=== PATIENT | female | born 1980 | race Caucasian/White ===

== ENCOUNTER 2016-07-03 15:53 | Emergency (ER) | payer OTHER ==
[2016-07-03 16:09] VITALS: BP 116/76; PULSE 79; RESP 16; TEMP 97.4
--- NOTE | 2016-07-03 17:30 | ED ---
General Adult HPI - General Chief complaint: Extremity Injury, Upper Stated complaint: right hand injury Time Seen by Provider: 07/03/16 17:08 Source: patient, RN notes reviewed Mode of arrival: ambulatory Limitations: no limitations - History of Present Illness Initial comments: This is a 36-year-old female who presents with right upper extremity pain. Patient states she is re-doing her kitchen and a cupboard fell onto her right arm. Patient denies that anything hit her head . Patient denies any loss of consciousness. Patient states it hurts to lift the right upper extremity. Patient states her right wrist is what hurts the most. Patient denies any numbness/weakness or tingling. Patient denies being on any anticoagulants. Patient denies any recent fever, chills, shortness breath, chest pain, abdominal pain, nausea/vomiting/diarrhea, back pain, hematuria, headache, or visual changes, or any other complaints. - Related Data Home Medications Medication Instructions Recorded Confirmed diphenhydrAMINE HCL [Benadryl] 25 mg PO TID PRN 07/03/16 07/03/16 Allergies Allergy/AdvReac Type Severity Reaction Status Date / Time aspirin Allergy Rash/Hives Verified 07/03/16 17:26 menthol [From Icy Hot] Allergy Swelling Verified 07/03/16 17:26 methyl salicylate Allergy Swelling Verified 07/03/16 17:26 [From Icy Hot] NSAIDS (Non-Steroidal Allergy Rash/Hives Verified 07/03/16 17:26 Anti-Inflamma venom-honey bee Allergy Rash/Hives Verified 07/03/16 17:26 [bee venom (honey bee)] wheat Allergy Anaphylaxis Verified 07/03/16 17:26 Review of Systems ROS Statement: Those systems with pertinent positive or pertinent negative responses have been documented in the HPI. ROS Other: All systems not noted in ROS Statement are negative. 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 History of Any Multi-Drug Resistant Organisms: None Reported Past Surgical History: Adenoidectomy, Section, Orthopedic Surgery, Tonsillectomy Additional Past Surgical History / Comment(s): d&C, Past Anesthesia/Blood Transfusion Reactions: No Reported Reaction Past Psychological History: No Psychological Hx Reported Smoking Status: Never smoker Past Alcohol Use History: None Reported Past Drug Use History: None Reported - Past Family History Father Family Medical History: Coronary Artery Disease (CAD) General Exam - General Exam Comments Initial Comments: General: The patient is awake and alert, in no distress, and does not appear acutely ill. Neck: The neck is supple, there is no tenderness or JVD. Cardiovascular: There is a regular rate and rhythm. No murmur, rub or gallop is appreciated. Respiratory: Lungs are clear to auscultation, respirations are non-labored, breath sounds are equal. No wheezes, stridor, rales, or rhonchi. Musculoskeletal: There is tenderness to palpation over the proximal right humerus, there is tenderness to palpation over the radial aspect of the right wrist. There is mild tenderness to palpation over the first MCP joint of the right hand. There is ecchymosis over the right proximal humerus otherwise no swelling or erythema. Patient has full range of motion, strength 5/5 and Sensation intact. Radial pulses are 2+ bilaterally. Neurological: A&O x 3. CN II-XII intact, There are no obvious motor or sensory deficits. Coordination appears grossly intact. Speech is normal. Skin: Faint ecchymosis over the right proximal humerus. Skin is warm and dry and no rashes or lesions are noted. Psychiatric: Normal mood and affect. Limitations: no limitations Course Vital Signs 07/03/16 16:06 Temperature 97.4 F L Pulse Rate 79 Respiratory 16 Rate Blood Pressure 116/76 O2 Sat by Pulse 98 Oximetry Medical Decision Making - Medical Decision Making This is a 36-year-old female presented who presents with upper extremity pain. On physical exam there is tenderness to palpation over the proximal right humerus, there is tenderness to palpation over the radial aspect of the right wrist. There is mild tenderness to palpation over the first MCP joint of the right hand. There is ecchymosis over the right proximal humerus otherwise no swelling or erythema. Patient has full range of motion, strength 5/5 and Sensation intact. Radial pulses are 2+ bilaterally. X-rays of the right humerus , right wrist and right hand were done and reviewed showing: X-ray wrist right: Normal right wrist. X-ray right humerus: Normal right humerus. X-ray right hand: Normal right hand. Reported by Dr. Garcia. I discussed the results with patient. Discussed rest, ice, elevate and use Brendon wrap for compression and Tylenol for pain. I discussed occult fracture. I discussed return parameters. Discussed that patient should follow up with PCP in one to 2 days or return to the [facility] for any worsening symptoms or for any further concerns. Patient was receptive to this plan and patient will be discharged home. I discussed this case with attending physician Dr. Vazquez who agrees the plan as stated above. Disposition Clinical Impression: Wrist contusion, Contusion of right upper extremity Disposition: HOME SELF-CARE Condition: Good Instructions: Wrist Injury (ED) Additional Instructions: Please rest, ice, elevate and use Brendon wrap for compression. Please use Tylenol for any pain. If symptoms do not improve in the next 7 days repeat x-rays may be needed to rule out occult fracture. Please follow-up with family doctor in the next 2 days of symptoms have not improved. Please return to emergency room if the symptoms increase or worsen or for any other concerns. Referrals: Marc Muro MD [Primary Care Provider] - 1-2 days Time of Disposition: 18:09
--- NOTE | 2016-07-03 18:03 | XR ---
EXAMINATION TYPE: XR wrist complete RT DATE OF EXAM ORDERED: 07/03/2016 5:32 PM HISTORY: Pain. COMPARISON: None. FINDINGS: No fracture, dislocation or other osseous lesion is seen. IMPRESSION: NORMAL RIGHT WRIST.
--- NOTE | 2016-07-03 18:03 | XR ---
EXAMINATION TYPE: XR hand complete RT DATE OF EXAM ORDERED: 07/03/2016 5:32 PM HISTORY: Pain. COMPARISON: None. FINDINGS: No fracture, dislocation or other acute osseous lesion is seen. IMPRESSION: NORMAL RIGHT HAND.
--- NOTE | 2016-07-03 18:04 | XR ---
EXAMINATION TYPE: XR humerus RT DATE OF EXAM ORDERED: 07/03/2016 5:32 PM HISTORY: Pain. COMPARISON: None. FINDINGS: No long bone fracture is seen. No elbow joint effusion is seen. IMPRESSION: NORMAL RIGHT HUMERUS.
== END 2016-07-03 18:17 | disposition home or self-care (01) ==
LOC: EC 15:53
DX: S40.021A Contusion of right upper arm, initial encounter (principal); S60.211A Contusion of right wrist, initial encounter; W20.8XXA Other cause of strike by thrown, projected or falling object, initial encounter; Y92.000 Kitchen of unspecified non-institutional (private) residence as the place of occurrence of the external cause; Z88.6 Allergy status to analgesic agent; Z88.8 Allergy status to other drugs, medicaments and biological substances; Z91.030 Bee allergy status; Z91.018 Allergy to other foods
CPT/HCPCS: 99283

== ENCOUNTER → 2019-07-18 | Outpatient (CLI) | payer OTHER ==
--- NOTE | 2019-07-18 10:41 | US ---
EXAMINATION TYPE: US abdomen complete DATE OF EXAM: 07/18/2019 COMPARISON: NONE CLINICAL HISTORY: R10.12 left upper quadrant pain. EXAM MEASUREMENTS: Liver Length: 15.0 cm Gallbladder Wall: 0.1 cm CBD: 0.5 cm Spleen: 11.2 cm Right Kidney: 10.0 x 5.1 x 4.8 cm Left Kidney: 10.2 x 4.8 x 5.0 cm Pancreas: Tail obscured by overlying bowel gas, visualized portions wnl Liver: Coarse, echogenic texture Gallbladder: wnl Evidence for sonographic Ge's sign: No CBD: wnl Spleen: wnl Right Kidney: No hydronephrosis or masses seen Left Kidney: No hydronephrosis or masses seen Upper IVC: wnl Abd Aorta: wnl The liver is heterogeneous. IMPRESSION: 1. Mild liver heterogeneity may be related to some fatty infiltration. 2. Abdomen ultrasound otherwise unremarkable.
== END | disposition home or self-care (01) ==
LOC: RADUSWWP 10:01
PROVIDERS: ATTEND Family Medicine
DX: R10.12 Left upper quadrant pain (principal); Z88.6 Allergy status to analgesic agent; Z88.5 Allergy status to narcotic agent
CPT/HCPCS: 76700

== ENCOUNTER → 2019-08-03 | Outpatient (CLI) | payer OTHER ==
--- NOTE | 2019-08-03 09:22 | NM ---
EXAMINATION TYPE: NM hepatobiliary w CCK DATE OF EXAM: 08/03/2019 COMPARISON: Abdominal ultrasound dated 07/18/2019 HISTORY: Abdominal pain, chronic cholecystitis TECHNIQUE: After the intravenous administration of 5.2 mCi Tc 99m Mebrofenin hepatobiliary scintigrap hy is performed. Immediate images post injection. FINDINGS: There is satisfactory initial accumulation of tracer by the liver. The gallbladder is visualized wit hin 8 minutes. At one hour CCK was administered, patient was injected with 1.5 mcg of Kinevac, and g allbladder ejection fraction is calculated at 98 %, elevated. Therefore there is no scintigraphic ev idence of cystic or common bile duct obstruction to suggest acute cholecystitis or gallbladder dyskin esia. IMPRESSION: Hyperkinetic gallbladder with elevated ejection fraction of 98%. No scintigraphic evidenc e of acute or chronic cholecystitis.
== END | disposition home or self-care (01) ==
LOC: RADNMMAIN 06:51
PROVIDERS: ATTEND Surgery
DX: K82.8 Other specified diseases of gallbladder (principal); K81.1 Chronic cholecystitis
CPT/HCPCS: 78227; A9537; J2805

== ENCOUNTER → 2019-08-04 | Outpatient (CLI) | payer OTHER | END | disposition home or self-care (01) | LOC: LABWHC1 09:20 | PROVIDERS: ATTEND Surgery | DX: U07.1 COVID-19 (principal) | CPT/HCPCS: 87635 ==

== ENCOUNTER 2019-08-06 09:16 | Day surgery (SDC) | payer OTHER ==
[2019-08-03 11:39] VITALS: BMI 27.9
[~2019-08-06 09:16] MED LIST: LACTATED RINGERS 1,000 ML IV SCH; LIDOCAINE 1% (10MG/ML) FOR IV START INTRADERMA PRN
[2019-08-06 10:25] VITALS: TEMP 97.9
[2019-08-06 10:26] LABS: Glucose,Whole Blood 101 mg/dL (75-99)
[2019-08-06] MEDS ORDERED: PROPOFOL 10 MG/ML 20 ML VIAL IV ONE (11:02)
--- NOTE | 2019-08-06 11:08 | P.GSHP ---
History of Present Illness H&P Date: 08/06/19 Chief Complaint: GERD, epigastric pain This is a 31-year-old female presents today for EGD. She has had complaints of GERD and epigastric pain. 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 HAS BEEN HAVING UPPER ABD. PAIN FOR PAST 3 WEEKS History of Any Multi-Drug Resistant Organisms: None Reported Past Surgical History: Adenoidectomy, Section, Orthopedic Surgery, Tonsillectomy Additional Past Surgical History / Comment(s): d&C,. BONE CHIP REMOVED FROM LT ARM Past Anesthesia/Blood Transfusion Reactions: No Reported Reaction Smoking Status: Never smoker - Past Family History Father Family Medical History: Coronary Artery Disease (CAD) Medications and Allergies Home Medications Medication Instructions Recorded Confirmed Type Albuterol Sulfate [Proair Hfa] 8.5 gm INHALATION PRN 08/06/19 History Allergies Allergy/AdvReac Type Severity Reaction Status Date / Time aspirin Allergy Rash/Hives Verified 08/06/19 10:10 menthol [From Icy Hot] Allergy Swelling Verified 08/06/19 10:10 methyl salicylate Allergy Swelling Verified 08/06/19 10:10 [From Icy Hot] NSAIDS (Non-Steroidal Allergy Rash/Hives Verified 08/06/19 10:10 Anti-Inflamma venom-honey bee Allergy Rash/Hives Verified 08/06/19 10:10 [bee venom (honey bee)] wheat Allergy Anaphylaxis Verified 08/06/19 10:10 Surgical - Exam Vital Signs Temp Pulse Resp BP Pulse Ox 97.9 F 77 17 127/81 98 08/06/19 10:18 08/06/19 10:18 08/06/19 10:18 08/06/19 10:18 08/06/19 10:18 - General well developed, well nourished, no distress - Eyes PERRL - ENT normal pinna - Neck no masses - Respiratory normal expansion - Cardiovascular Rhythm: regular - Abdomen Abdomen: soft, non tender Results - Labs Abnormal Lab Results - Last 24 Hours (Table) 08/06/19 Range/Units 10:22 POC Glucose (mg/dL) 101 H (75-99) mg/dL Assessment and Plan Assessment: GERD, epigastric pain. We'll perform EGD.
--- NOTE | 2019-08-06 11:23 | P.OP ---
Date of Procedure: 08/06/19 Preoperative Diagnosis: GERD Postoperative Diagnosis: Antral gastritis Mild esophagitis Procedure(s) Performed: EGD Anesthesia: MAC Surgeon: Kurtis Caldwell Pathology: other (Antrum, esophagus) Condition: stable Disposition: PACU Description of Procedure: The patient's placed on the endoscopy table in the lateral position. She received IV sedation. The gastroscope placed oropharynx passed in the esophagus and stomach. Scope was then placed through the pylorus. The first and second portion of the duodenum appeared normal. Scope was then brought back the antrum this. Mildly inflamed. A biopsies performed. The scope was then retroflexed and the remainder of the stomach appeared normal. The GE junction was at 40 cm. The distal esophagus. Inflamed in this area is biopsied. The proximal esophagus. Normal. There was no significant hiatal hernia. Scope was withdrawn for patient.
[2019-08-06 11:47] VITALS: BP 113/78; PULSE 68; RESP 16
== END 2019-08-06 12:14 | disposition home or self-care (01) ==
LOC: ORWHC2ENDO 09:16
PROVIDERS: ATTEND Surgery
DX: K29.50 Unspecified chronic gastritis without bleeding (principal); K21.0 Gastro-esophageal reflux disease with esophagitis; J45.909 Unspecified asthma, uncomplicated; Z88.6 Allergy status to analgesic agent; Z90.89 Acquired absence of other organs; Z98.891 History of uterine scar from previous surgery; Z91.048 Other nonmedicinal substance allergy status; Z91.018 Allergy to other foods; Z91.030 Bee allergy status; Z82.49 Family history of ischemic heart disease and other diseases of the circulatory system
CPT/HCPCS: 81025; 88305; 43239; J2704

== ENCOUNTER → 2019-08-21 | Outpatient (CLI) | payer OTHER | END | disposition home or self-care (01) | LOC: LABWHC1 08:55 | PROVIDERS: ATTEND Surgery | DX: Z11.59 Encounter for screening for other viral diseases (principal) | CPT/HCPCS: 87635 ==

== ENCOUNTER → 2019-08-23 | Day surgery (SDC) | payer OTHER ==
[2019-08-21 15:14] VITALS: BMI 27.8
[~2019-08-23] MED LIST changes: +ACETAMINOPHEN TAB 500 MG TAB PO ONE; +BUPIVACAIN-EPI 0.25%-1:200,000 30 ML VIAL SQ ONE; +DEXAMETHASONE SOD PHOSPHATE 10 MG/ML 1 ML VIAL IV ONE; +GLYCOPYRROLATE 0.2 MG/ML 2 ML VIAL ONE; +HEPARIN SODIUM,PORCINE 5,000 UNIT/ML 1 ML VIAL SQ ONE; +HYDROmorphone (PF) 1 MG/ML ONE; +HYDROmorphone 0.5 MG/0.5 ML SYRINGE IVP PRN; -LACTATED RINGERS 1,000 ML IV SCH; -LIDOCAINE 1% (10MG/ML) FOR IV START INTRADERMA PRN; +LIDOCAINE 1% INJ 10MG/ML (20 ML MDV) ONE; +METOCLOPRAMIDE 5 MG/ML 2 ML VIAL IVP ONE; +MIDAZOLAM 2 MG/2 ML VIAL ONE; +NEOSTIGMINE 1 MG/ML 10 ML VIAL ONE; +ONDANSETRON 4 MG/2 ML VIAL IVP ONE; +PROPOFOL 10 MG/ML 20 ML VIAL IV ONE; +ROCURONIUM BROMIDE 10 MG/ML 5 ML VIAL IV ONE; +SUCCINYLCHOLINE CHLORIDE 100 MG/5 ML SYR IV ONE; +fentaNYL (PF) 50 MCG/ML 2 ML AMP ONE
[2019-08-23 06:52] VITALS: TEMP 97
[2019-08-23 07:09] LABS: Glucose,Whole Blood 98 mg/dL (75-99)
[2019-08-23] MEDS: LACTATED RINGERS 1,000 ML IV SCH ×2 (07:09→12:48)
--- NOTE | 2019-08-23 08:30 | P.OP ---
Date of Procedure: 08/23/19 Preoperative Diagnosis: Cholecystitis Postoperative Diagnosis: Cholecystitis Procedure(s) Performed: Laparoscopic cholecystectomy Anesthesia: TOMER Surgeon: Kurtis Caldwell Estimated Blood Loss (ml): 5 Pathology: other (Gallbladder) Condition: stable Disposition: PACU Description of Procedure: The patient was placed on the operating table. The patient received a general endotracheal tube anesthesia. The patients abdomen was prepped and draped in the usual sterile fashion. Through an infraumbilical stab incision, the fascia of the anterior abdominal wall was grasped with a pair of Kochers and then the Veress needle was placed in the peritoneal cavity. Position of the Veress needle was confirmed with positive drop test. The abdomen was then insufflated. After adequate insufflation, the 10 mm trocar was placed in the peritoneal cavity. Following this the laparoscope was placed in the peritoneal cavity. The patient was placed in the head-up, right side up position and then a 5 mm trocar was placed in the right lateral and right subcostal position under direct visualization. A 8 mm trocar was placed in the epigastric position. The gallbladder was grasped in the fundus and infundibulum. Traction on the gallbladder was placed in the lateral and the cephalad positions. The triangle of Calot was visualized.. The cystic duct was bluntly dissected until the union of the cystic duct and common bile duct was seen. A critical view of safety was achieved. The cystic duct was then divided and sealed with the Harmonic scissors. A PDS Endoloop was then placed throughout the cystic duct stump. The cystic artery divided and sealed with the Harmonic scissors. The gallbladder was then removed from the liver bed using Harmonic scissors. The gallbladder was then extracted through the epigastric port site. Operative field was checked for any bleeding spots and Harmonic scissors was used to coagulate the liver bed. The abdomen was irrigated. The trocars were removed. The skin was closed using interrupted 3-0 Vicryl suture. Dermabond dressing were applied. The patient tolerated the procedure well.
--- NOTE | 2019-08-23 08:31 | P.GSHP ---
History of Present Illness H&P Date: 08/23/19 Chief Complaint: Right upper quadrant pain This a 31-year-old female presents today for laparoscopic cholecystectomy. Patient is right upper quadrant pain. Her recent HIDA scan shows abnormal ejection fraction. 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, "beginning retinal detachment" History of Any Multi-Drug Resistant Organisms: None Reported Past Surgical History: Adenoidectomy, Section, Orthopedic Surgery, Tonsillectomy Additional Past Surgical History / Comment(s): d&C, EGD Past Anesthesia/Blood Transfusion Reactions: No Reported Reaction Smoking Status: Never smoker - Past Family History Father Family Medical History: Coronary Artery Disease (CAD) Medications and Allergies Home Medications Medication Instructions Recorded Confirmed Type Albuterol Sulfate [Proair Hfa] 8.5 gm INHALATION DIRECTED PRN 08/06/19 08/23/19 History Allergies Allergy/AdvReac Type Severity Reaction Status Date / Time aspirin Allergy Rash/Hives Verified 08/23/19 07:11 menthol [From Icy Hot] Allergy Swelling Verified 08/23/19 07:11 methyl salicylate Allergy Swelling Verified 08/23/19 07:11 [From Icy Hot] NSAIDS (Non-Steroidal Allergy Rash/Hives Verified 08/23/19 07:11 Anti-Inflamma venom-honey bee Allergy Anaphylaxis Verified 08/23/19 07:11 [bee venom (honey bee)] wheat Allergy Anaphylaxis Verified 08/23/19 07:11 Surgical - Exam Vital Signs Temp Pulse Resp BP Pulse Ox 97 F L 85 15 127/90 98 08/23/19 06:50 08/23/19 06:50 08/23/19 06:50 08/23/19 06:50 08/23/19 06:50 - General well developed, well nourished, no distress - Eyes PERRL - ENT normal pinna - Neck no masses - Respiratory normal expansion - Cardiovascular Rhythm: regular - Abdomen Abdomen: soft, non tender Assessment and Plan Assessment: Chronic cholecystitis. We'll perform laparoscopic cholecystectomy.
[2019-08-23 08:58] VITALS: RESP 16
[2019-08-23 12:16] VITALS: BP 105/75; PULSE 68
== END ==
LOC: OR 06:21
PROVIDERS: ATTEND Surgery
DX: K81.2 Acute cholecystitis with chronic cholecystitis (principal); J45.909 Unspecified asthma, uncomplicated; E16.2 Hypoglycemia, unspecified; Z88.6 Allergy status to analgesic agent; Z91.030 Bee allergy status; Z91.018 Allergy to other foods; Z90.89 Acquired absence of other organs; Z98.891 History of uterine scar from previous surgery; Z82.49 Family history of ischemic heart disease and other diseases of the circulatory system; Z98.890 Other specified postprocedural states
CPT/HCPCS: 81025; 88304; 47562; J2250; J1644; J1100; J2710; J2765; J0690; J2405; J2001; J3010; J1170 ×2; J0330; J2704

== ENCOUNTER → 2020-03-14 | Outpatient (CLI) | payer OTHER | END | disposition home or self-care (01) | LOC: LABWHC1 14:41 | PROVIDERS: ATTEND Family Medicine | DX: R05 Cough (principal); Z20.828 Contact with and (suspected) exposure to other viral communicable diseases | CPT/HCPCS: U0003; C9803 ==

== ENCOUNTER → 2021-05-05 | Outpatient (CLI) | payer OTHER ==
--- NOTE | 2021-05-06 10:00 | MM ---
Reason for exam: screening (asymptomatic). Baseline mammogram. History: Took hormonal contraceptives beginning at age 17. Physical Findings: Nurse did not find any significant physical abnormalities on exam. MG 3D Screening Mammo W/Cad Bilateral CC and MLO view(s) were taken. The breast tissue is heterogeneously dense. This may lower the sensitivity of mammography. Focal asymmetry upper outer right breast zone B. ASSESSMENT: Incomplete: need additional imaging evaluation, BI-RAD 0 RECOMMENDATION: Special view mammogram of the right breast. If lesion persists on supplemental views, image directed ultrasound is recommended. [facility] will attempt to contact patient to return for supplemental views and ultrasound if indicated.
== END | disposition home or self-care (01) ==
LOC: RADMAMWWP 09:39
PROVIDERS: ATTEND Obstetrics & Gynecology
DX: Z12.31 Encounter for screening mammogram for malignant neoplasm of breast (principal)
CPT/HCPCS: 77063; 77067

== ENCOUNTER → 2021-05-07 | Outpatient (CLI) | payer OTHER ==
--- NOTE | 2021-05-07 11:46 | MM ---
Reason for exam: additional evaluation requested from abnormal screening. Last mammogram was performed less than 1 month ago. History: Took hormonal contraceptives beginning at age 17. Physical Findings: Breast exam preformed at baseline screening. MG 3D Work Up W/Cad RT Spot compression CC and spot compression LM view(s) were taken of the right breast. Prior study comparison: May 05, 2021, bilateral MG 3d screening mammo w/cad. There are scattered fibroglandular densities. 10 o'clock focal asymmetry becomes less defined on spot images, likely a global asymmetry. Ultrasound recommended. These results were verbally communicated with the patient and result sheet given to the patient on 05/07/21. ASSESSMENT: Incomplete: need additional imaging evaluation, BI-RAD 0 RECOMMENDATION: Ultrasound of the right breast.
--- NOTE | 2021-05-07 11:47 | USB ---
Reason for exam: additional evaluation requested from abnormal screening. History: Took hormonal contraceptives beginning at age 17. US Breast Workup Limited RT Technologist: Drea Hamilton Right limited breast ultrasound including focal area of concern, retroareolar and axilla demonstrates no cystic or solid lesion seen. Scanned 9-12 o'clock. These results were verbally communicated with the patient and result sheet given to the patient on 05/07/21. ASSESSMENT: Probably benign, BI-RAD 3 RECOMMENDATION: Follow-up diagnostic mammogram of the right breast in 6 months.
== END | disposition home or self-care (01) ==
LOC: RADMAMWWP 10:32
PROVIDERS: ATTEND Obstetrics & Gynecology
DX: R92.8 Other abnormal and inconclusive findings on diagnostic imaging of breast (principal)
CPT/HCPCS: 77061; 77065

== ENCOUNTER → 2021-11-17 | Outpatient (CLI) | payer OTHER ==
--- NOTE | 2021-11-17 10:47 | MM ---
Reason for Exam: Follow-up at short interval from prior study. Last screening mammogram was performed 6 month(s) ago. Patient History: Menarche at age 14. First Full-Term at age 22. Patient has history of breast feeding. Hormonal Contraceptives, from age 17 until age 28. Last menstrual period: 11/02/2021 Risk Values: Feli 5 year model risk: 0.5%. NCI Lifetime model risk: 9.0%. Prior Study Comparison: 05/05/2021 Bilateral Screening Mammogram, [facility]. 05/07/2021 Right Diagnostic Mammogram, [facility]. Tissue Density: Right: The breast tissue is heterogeneously dense. This may lower the sensitivity of mammography. Findings: Analyzed By CAD. Asymmetric density upper outer right breast is again noted however is less conspicuous on today's study. Continued follow-up is advised. No evidence for suspicious cluster of calcifications. Overall Assessment: Benign, BI-RAD 2 Management: Screening Mammogram of both breasts in 6 months. A clinical breast exam by your physician is recommended on an annual basis and results should be correlated with mammographic findings. This exam should not preclude additional follow-up of suspicious palpable abnormalities. Results were given to the patient verbally at the time of exam. Electronically signed and approved by: Golden Davis M.D. Radiologis
== END | disposition home or self-care (01) ==
LOC: RADMAMWWP 07:39
PROVIDERS: ATTEND Obstetrics & Gynecology
DX: R92.8 Other abnormal and inconclusive findings on diagnostic imaging of breast (principal)
CPT/HCPCS: 77061; 77065

== ENCOUNTER → 2022-09-06 | Outpatient (CLI) | payer OTHER ==
[2022-09-06 16:08] LABS: Basophils # (A) 0.06 X 10*3/uL; Eosinophils # (A) 0.51 X 10*3/uL; Eosinophils % (A) 8.6 %; HCT 41.8 %; HGB 13.4 d/dL; Lymphocytes # (A) 1.82 X 10*3/uL; Lymphocytes % (A) 30.6 %; MCH 29.8 pg; MCHC 32.1 d/dL; MCV 93.1 FL; Mean Platelet Volume 11.7 FL; Monocytes # (A) 0.44 X 10*3/uL; Monocytes % (A) 7.4 %; NRBC Per 100 WBC 0 X 10*3/uL; Neutrophils # (A) 3.11 X 10*3/uL; Neutrophils % (A) 52.2 %; Platelet Count 261 X 10*3/uL; RBC 4.49 X 10*6/uL; RDW 13.2 %; WBC 5.95 X 10*3/uL
[2022-09-06 16:10] LABS: Chol/HDL Ratio 1.77 Ratio; LDL Cholesterol,Calculated 46.2 mg/dL; Rheumatoid Factor, Qnt <15 IU/mL; T4, Free (Free Thyroxine) 1.32 ng/dL; VLDL Calculation 5.28 mg/dL
[2022-09-07 08:37] LABS: ALT 22 U/L; AST 17 U/L; Albumin 4.5 d/dL; Albumin/Globulin Ratio 2.05 Ratio; Alkaline Phosphatase 51 U/L; BUN/Creat Ratio 9.56 Ratio; Blood Urea Nitrogen 8.6 mg/dL; Calcium 9.2 mg/dL; Carbon Dioxide 24.1 mmol/L; Chloride 103 mmol/L; Globulin 2.2 d/dL; Glucose 97 mg/dL; Potassium 4.6 mmol/L; Sodium 140 mmol/L; Total Bilirubin 0.8 mg/dL; Total Protein 6.7 d/dL
== END | disposition home or self-care (01) ==
LOC: LABWHC1 07:43
PROVIDERS: ATTEND Nurse Practitioner Family
DX: J45.20 Mild intermittent asthma, uncomplicated (principal); M25.50 Pain in unspecified joint; E66.9 Obesity, unspecified; M19.90 Unspecified osteoarthritis, unspecified site; Z68.30 Body mass index [BMI] 30.0-30.9, adult; Z00.00 Encounter for general adult medical examination without abnormal findings
CPT/HCPCS: 36415; 80053; 80061; 82306; 84439; 84443; 85025; 86038; 86431

== ENCOUNTER → 2023-09-28 | Outpatient (CLI) | payer OTHER ==
[2023-09-28 09:13] LABS: Basophils # (A) 0.1 k/uL (0-0.2); Basophils % (A) 1 %; Eosinophils # (A) 0.4 k/uL (0-0.7); Eosinophils % (A) 6 %; HCT 44.6 % (34.0-46.0); HGB 14.1 gm/dL (11.4-16.0); Lymphocytes # (A) 1.7 k/uL (1.0-4.8); Lymphocytes % (A) 29 %; MCH 29.3 pg (25.0-35.0); MCHC 31.7 g/dL (31.0-37.0); MCV 92.3 fL (80.0-100.0); Mean Platelet Volume 8.5; Monocytes # (A) 0.3 k/uL (0-1.0); Monocytes % (A) 5 %; Neutrophils # (A) 3.4 k/uL (1.3-7.7); Neutrophils % (A) 57 %; Platelet Count 269 k/uL (150-450); RBC 4.83 m/uL (3.80-5.40); RDW 13.1 % (11.5-15.5); WBC 5.9 k/uL (3.8-10.6)
[2023-09-28 16:21] LABS: BUN/Creat Ratio 13.22 Ratio (12.00-20.00); Blood Urea Nitrogen 11.9 mg/dL (9.0-27.0); Carbon Dioxide 22.5 mmol/L (21.6-31.8); Chloride 105 mmol/L (96-109); Chol/HDL Ratio 1.79 Ratio; Glucose 110 mg/dL (70-110); LDL Cholesterol,Calculated 50.9 mg/dL (0.0-131.0); Potassium 4.6 mmol/L (3.5-5.5); Rheumatoid Factor, Qnt <15 IU/mL (0-15); Sodium 140 mmol/L (135-145); VLDL Calculation 7.26 mg/dL (5.00-40.00)
[2023-09-28 16:22] LABS: ALT 15 U/L (8-44); AST 18 U/L (13-35); Albumin 4.7 g/dL (3.8-4.9); Albumin/Globulin Ratio 1.96 Ratio (1.60-3.17); Alkaline Phosphatase 64 U/L (41-126); Calcium 9.8 mg/dL (8.7-10.3); Globulin 2.4 g/dL (1.6-3.3); T4, Free (Free Thyroxine) 1.22 ng/dL (0.80-1.80); Total Bilirubin 0.9 mg/dL (0.3-1.2); Total Protein 7.1 g/dL (6.2-8.2)
== END | disposition home or self-care (01) ==
LOC: LABWHC1 08:56
PROVIDERS: ATTEND Family Medicine
DX: M19.90 Unspecified osteoarthritis, unspecified site (principal); E55.9 Vitamin D deficiency, unspecified; Z00.00 Encounter for general adult medical examination without abnormal findings
CPT/HCPCS: 36415; 80053; 80061; 82306; 84439; 84443; 85025; 86431

== ENCOUNTER → 2023-11-01 | Outpatient (CLI) | payer OTHER ==
--- NOTE | 2023-11-03 12:09 | MM ---
Reason for Exam: Screening (asymptomatic). Last mammogram was performed 1 year(s) and 5 month(s) ago. Patient History: Menarche at age 14. First Full-Term at age 22. Patient has history of breast feeding. Hormonal Contraceptives, from age 17 until age 28. Risk Values: Feli 5 year model risk: 0.6%. NCI Lifetime model risk: 8.9%. Prior Study Comparison: 05/07/2021 Right Diagnostic Mammogram, [facility]. 11/17/2021 Right MG 3D diag mammo w/cad RT, [facility]. 05/27/2022 Bilateral MG 3D screening mammo w/cad, [facility]. Tissue Density: The breasts are heterogeneously dense, which may obscure small masses. Findings: Analyzed By CAD. There is no suspicious group of microcalcifications or new suspicious mass in either breast. Overall Assessment: Benign, BI-RAD 2 Management: Screening Mammogram of both breasts in 1 year. . Patient should continue monthly self-breast exams. A clinical breast exam by your physician is recommended on an annual basis. This exam should not preclude additional follow-up of suspicious palpable abnormalities. Note on Feli scores and lifetime risk: 1. A Feli score greater than 3% is considered moderate risk. If this is the case, consider specialist referral to assess eligibility for a risk reducing agent. 2. If overall lifetime risk for the development of breast cancer is 20% or higher, the patient may qualify for future screening with alternating mammogram and breast MRI. Electronically signed and approved by: Golden Davis M.D. Radiologis
== END | disposition home or self-care (01) ==
LOC: RADMAMWWP 16:21
PROVIDERS: ATTEND Family Medicine
DX: Z12.31 Encounter for screening mammogram for malignant neoplasm of breast (principal)
CPT/HCPCS: 77063; 77067

== ENCOUNTER 2023-12-07 15:53 | Emergency (ER) | payer OTHER ==
[2023-12-07 15:57] VITALS: RESP 18; TEMP 98
--- NOTE | 2023-12-07 16:10 | ED ---
Chest Pain HPI - General Chief Complaint: Chest Pain Stated Complaint: Chest Tightness Time Seen by Provider: 12/07/23 16:08 Source: patient, RN notes reviewed Mode of arrival: ambulatory Limitations: no limitations - History of Present Illness Initial Comments: 43-year-old female with past medical history of asthma presents emergency department chief complaint of intermittent chest tightness and heart palpitations over the past 6 days. she does have a history of similar symptoms however these symptoms have persisted over the past few days. today she began to feel mildly short of breath as well. She denies recent prolonged travel, recent surgeries, blood clotting disorders, history of DVT or PE. No blood thinner use. She denies fevers, chills, nausea, vomiting, abdominal pain, cough, congestion, rhinorrhea. She denies history of hypertension, diabetes, [place], CVA. 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 - Related Data Home Medications Medication Instructions Recorded Confirmed No Known Home Medications 12/07/23 12/07/23 Allergies Allergy/AdvReac Type Severity Reaction Status Date / Time aspirin Allergy Rash/Hives Verified 12/07/23 16:58 menthol [From Icy Hot] Allergy Swelling Verified 12/07/23 16:58 methyl salicylate Allergy Swelling Verified 12/07/23 16:58 [From Icy Hot] NSAIDS (Non-Steroidal Allergy Rash/Hives Verified 12/07/23 16:58 Anti-Inflamma venom-honey bee Allergy Anaphylaxis Verified 12/07/23 16:58 [bee venom (honey bee)] wheat Allergy Anaphylaxis Verified 12/07/23 16:58 Review of Systems ROS Statement: Those systems with pertinent positive or pertinent negative responses have been documented in the HPI. ROS Other: All systems not noted in ROS Statement are negative. 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 History of Any Multi-Drug Resistant Organisms: None Reported Past Surgical History: Adenoidectomy, Section, Orthopedic Surgery, Tonsillectomy Additional Past Surgical History / Comment(s): d&C, bone graft 10/2023 Past Anesthesia/Blood Transfusion Reactions: No Reported Reaction Past Psychological History: No Psychological Hx Reported Smoking Status: Former smoker Past Alcohol Use History: Occasional Past Drug Use History: None Reported - Past Family History Father Family Medical History: Coronary Artery Disease (CAD) General Exam Limitations: no limitations General appearance: alert, in no apparent distress Head exam: Present: atraumatic, normocephalic, normal inspection Eye exam: Present: normal appearance, PERRL, EOMI. Absent: scleral icterus, conjunctival injection, periorbital swelling ENT exam: Present: normal exam, mucous membranes moist Neck exam: Present: normal inspection. Absent: tenderness, meningismus, lymphadenopathy Respiratory exam: Present: normal lung sounds bilaterally. Absent: respiratory distress, wheezes, rales, rhonchi, stridor Cardiovascular Exam: Present: regular rate, normal rhythm, normal heart sounds. Absent: systolic murmur, diastolic murmur, rubs, gallop, clicks GI/Abdominal exam: Present: soft, normal bowel sounds. Absent: distended, tenderness, guarding, rebound, rigid Extremities exam: Present: normal inspection, full ROM, normal capillary refill. Absent: tenderness, pedal edema, joint swelling, calf tenderness Back exam: Present: normal inspection Neurological exam: Present: alert, oriented X3, CN II-XII intact Skin exam: Present: warm, dry, intact, normal color. Absent: rash Course Vital Signs 12/07/23 12/07/23 12/07/23 15:55 16:30 17:00 Temperature 98 F Pulse Rate 83 79 Respiratory 18 18 18 Rate Blood Pressure 147/91 140/94 126/86 O2 Sat by Pulse 100 98 Oximetry 12/07/23 17:30 Temperature Pulse Rate 75 Respiratory 18 Rate Blood Pressure 119/84 O2 Sat by Pulse 98 Oximetry Chest Pain MDM - MDM Was pt. sent in by a medical professional or institution (, PA, MULTIPLE TUBE WINDING MACHINE OPERATOR, urgent care, hospital, or retirement...) When possible be specific @ -No Did you speak to anyone other than the patient for history (EMS, parent, family, police, friend...)? What history was obtained from this source @ -No Did you review nursing and triage notes (agree or disagree)? Why? @ -I reviewed and agree with nursing and triage notes Were old charts reviewed (outside hosp., previous admission, EMS record, old EKG, old radiological studies, urgent care reports/EKG's, retirement records)? Report findings @ -No old charts were reviewed Differential Diagnosis (chest pain, altered mental status, abdominal pain women, abdominal pain men, vaginal bleeding, weakness, fever, dyspnea, syncope, headache, dizziness, GI bleed, back pain, seizure, CVA, palpatations, mental health, musculoskeletal)? @ -Differential Chest Pain: Stable Angina, Unstable Angina, STEMI, NSTEMI Aortic Dissection, Pneumothorax, Musculoskeletal, Esophageal Spasm GERD, Cholecystitis, Pancreatitis, Zoster, this is not meant to be an all-inclusive list. EKG interpreted by me (3pts min.). @ -Completed at 1614, sinus rhythm with a ventricular rate of 89, WA interval 135, QTc 388. No acute signs of ischemia X-rays interpreted by me (1pt min.). @ -Chest x-ray no acute cardiopulmonary process or disease CT interpreted by me (1pt min.). @ -None done U/S interpreted by me (1pt. min.). @ -None done What testing was considered but not performed or refused? (CT, X-rays, U/S, labs)? Why? @ -None What meds were considered but not given or refused? Why? @ -None Did you discuss the management of the patient with other professionals ( professionals i.e. , PA, MULTIPLE TUBE WINDING MACHINE OPERATOR, lab, RT, psych nurse, forensic social worker, third mate, teacher, transit police officer, machine adjuster leader case trim)? Give summary @ -No Was smoking cessation discussed for >3mins.? @ -No Was critical care preformed (if so, how long)? @ -No Were there social determinants of health that impacted care today? How? (Homelessness, low income, unemployed, alcoholism, drug addiction, transportation, low edu. Level, literacy, decrease access to med. care, [facility]ci, rehab)? @ -No Was there de-escalation of care discussed even if they declined (Discuss DNR or withdrawal of care, Hospice)? DNR status @ -No What co-morbidities impacted this encounter? (DM, HTN, Smoking, COPD, CAD, Cancer, CVA, ARF, Chemo, Hep., AIDS, mental health diagnosis, sleep apnea, morbid obesity)? @ -None Was patient admitted / discharged? Hospital course, mention meds given and route, prescriptions, significant lab abnormalities, going to OR and other pertinent info. @ -43-year-old female with intermittent heart palpitations and chest tightness. On examination patient is resting comfortably on room air no signs of acute distress, vitals are within normal limits. There are no acute findings on physical examination. Patient will undergo cardiac workup to rule out pulmonary or cardiac pathology, patient is in agreement with this plan. additionally, EKG reveals sinus rhythm with no acute ischemic changes. CBC, CMP unremarkable, coagulation profile including D-dimer within normal limits. Lipase nonelevated, nonelevated. Recommend that patient follow-up outpatient with her primary care provider for further evaluation of potential Holter monitor placement. All questions answered at bedside strict return parameters as the patient she is verbalized understanding. Case discussed with Dr. Alvarenga Undiagnosed new problem with uncertain prognosis? @ -No Drug Therapy requiring intensive monitoring for toxicity (Heparin, Nitro, Insulin, Cardizem)? @ -No Were any procedures done? @ -No Diagnosis/symptom? @ -Palpitations Acute, or Chronic, or Acute on Chronic? @ -Acute Uncomplicated (without systemic symptoms) or Complicated (systemic symptoms)? @ -Uncomplicated Side effects of treatment? @ -No Exacerbation, Progression, or Severe Exacerbation? @ -No Poses a threat to life or bodily function? How? (Chest pain, [place], [place], pneumonia, PE, COPD, DKA, ARF, appy, cholecystitis, CVA, Diverticulitis, Homicidal, Suicidal, threat to staff... and all critical care pts) @ -No Disposition Clinical Impression: Periodic heart flutter Disposition: HOME SELF-CARE Condition: Good Instructions (If sedation given, give patient instructions): Heart Palpitations (ED) Additional Instructions: Return to emergency department for any new or worsening symptoms. Recommend follow-up with your primary care provider for further evaluation. Is patient prescribed a controlled substance at d/c from ED?: No Referrals: Marc Muro MD [Primary Care Provider] - 1-2 days Time of Disposition: 17:57
[2023-12-07 16:28] LABS: Basophils # (A) 0.1 k/uL (0-0.2); Basophils % (A) 1 %; Eosinophils # (A) 0.4 k/uL (0-0.7); Eosinophils % (A) 5 %; HCT 39.6 % (34.0-46.0); HGB 13.5 gm/dL (11.4-16.0); Lymphocytes % (A) 37 %; MCH 30.2 pg (25.0-35.0); MCHC 34.2 g/dL (31.0-37.0); MCV 88.5 fL (80.0-100.0); Mean Platelet Volume 8.1; Monocytes # (A) 0.4 k/uL (0-1.0); Monocytes % (A) 5 %; Neutrophils # (A) 4.2 k/uL (1.3-7.7); Neutrophils % (A) 51 %; Platelet Count 267 k/uL (150-450); RBC 4.47 m/uL (3.80-5.40); RDW 13.2 % (11.5-15.5); WBC 8.1 k/uL (3.8-10.6)
[2023-12-07 16:39] LABS: INR 0.9 (<1.2); Prothrombin Time 10.3 sec (10.0-12.5)
[2023-12-07 16:43] LABS: ALT 23 U/L (4-34); AST 29 U/L (14-36); African American GFR (CKD) >90 (>60 ml/min/1.73 sqM); Albumin 4.8 g/dL (3.5-5.0); Alkaline Phosphatase 56 U/L (38-126); Anion Gap 5 mmol/L; Blood Urea Nitrogen 12 mg/dL (7-17); Calcium 9.9 mg/dL (8.4-10.2); Carbon Dioxide 24 mmol/L (22-30); Chloride 105 mmol/L (98-107); Glucose 89 mg/dL (74-99); Lipase 196 U/L (23-300); Magnesium 1.8 mg/dL (1.6-2.3); Non-African American GFR(CKD) 88 (>60 ml/min/1.73 sqM); Sodium 134 mmol/L (137-145); Total Bilirubin 0.8 mg/dL (0.2-1.3); Total Protein 7.3 g/dL (6.3-8.2)
--- NOTE | 2023-12-07 16:46 | XR ---
EXAMINATION TYPE: XR chest 2V DATE OF EXAM: 12/07/2023 COMPARISON: None INDICATION: Chest pain short of breath chest tightness TECHNIQUE: Frontal and lateral views of the chest are obtained. FINDINGS: The heart size is normal. The pulmonary vasculature is normal. The lungs are clear. IMPRESSION: 1. No acute pulmonary process.
[2023-12-07 18:00] VITALS: BP 119/84; PULSE 75
== END 2023-12-07 18:13 | disposition home or self-care (01) ==
LOC: EC 15:53
CPT/HCPCS: 36415; 71046; 80053; 83690; 83735; 84443; 84484; 85025; 85379; 85610; 87636; 93005; 99285

== ENCOUNTER → 2024-01-16 | Outpatient (CLI) | payer OTHER ==
--- NOTE | 2024-01-16 18:05 | XR ---
EXAMINATION TYPE: XR chest 2V DATE OF EXAM: 01/16/2024 4:51 PM CLINICAL INDICATION: Female, 43 years old with history of R06.02 SHORTNESS OF BREATH; [facility] COMPARISON: Chest radiographs from 12/07/2023 TECHNIQUE: XR chest 2V Frontal view of the chest. FINDINGS: Lungs/Pleura: There is no evidence of pleural effusion, focal consolidation, or pneumothorax. Pulmonary vascularity: Unremarkable. Heart/mediastinum: Cardiomediastinal silhouette is unremarkable. Musculoskeletal: No acute osseous pathology. IMPRESSION: No acute cardiopulmonary disease/process. [facility], , 01/16/2024 6:02 PM
== END | disposition home or self-care (01) ==
LOC: RADXRMAIN 16:34
PROVIDERS: ATTEND Family Medicine
DX: R06.02 Shortness of breath (principal)
CPT/HCPCS: 71046

== ENCOUNTER 2024-01-22 19:54 | Emergency (ER) | payer OTHER ==
[2024-01-22 20:34] LABS: Basophils # (A) 0.1 k/uL (0-0.2); Basophils % (A) 1 %; Eosinophils # (A) 0.5 k/uL (0-0.7); Eosinophils % (A) 6 %; HCT 40.6 % (34.0-46.0); HGB 13.2 gm/dL (11.4-16.0); Lymphocytes # (A) 2.7 k/uL (1.0-4.8); Lymphocytes % (A) 35 %; MCH 29.6 pg (25.0-35.0); MCHC 32.4 g/dL (31.0-37.0); MCV 91.3 fL (80.0-100.0); Mean Platelet Volume 8.3; Monocytes # (A) 0.5 k/uL (0-1.0); Monocytes % (A) 6 %; Neutrophils # (A) 3.9 k/uL (1.3-7.7); Neutrophils % (A) 50 %; Platelet Count 272 k/uL (150-450); RBC 4.45 m/uL (3.80-5.40); RDW 13.1 % (11.5-15.5); WBC 7.8 k/uL (3.8-10.6)
[2024-01-22 20:35] LABS: ALT 19 U/L (4-34); AST 21 U/L (14-36); African American GFR (CKD) >90 (>60 ml/min/1.73 sqM); Albumin 4.5 g/dL (3.5-5.0); Alkaline Phosphatase 51 U/L (38-126); Amylase 53 U/L (30-110); Anion Gap 6 mmol/L; Blood Urea Nitrogen 13 mg/dL (7-17); Calcium 9.6 mg/dL (8.4-10.2); Carbon Dioxide 26 mmol/L (22-30); Chloride 107 mmol/L (98-107); Glucose 79 mg/dL (74-99); Lipase 279 U/L (23-300); Magnesium 1.7 mg/dL (1.6-2.3); Non-African American GFR(CKD) 85 (>60 ml/min/1.73 sqM); Potassium 3.9 mmol/L (3.5-5.1); Sodium 139 mmol/L (137-145); Total Bilirubin 0.6 mg/dL (0.2-1.3)
[2024-01-22 20:38] LABS: INR 0.9 (<1.2); Partial Thromboplastin Time 24.6 sec (22.0-30.0); Prothrombin Time 10.2 sec (10.0-12.5)
--- NOTE | 2024-01-22 20:48 | XR ---
EXAMINATION TYPE: XR chest 2V DATE OF EXAM: 01/22/2024 8:30 PM CLINICAL INDICATION: Female, 43 years old with history of Chest Pain; [facility] COMPARISON: Chest radiographs from 01/16/2024 TECHNIQUE: XR chest 2V Frontal view of the chest. FINDINGS: Lungs/Pleura: There is no evidence of pleural effusion, focal consolidation, or pneumothorax. Pulmonary vascularity: Unremarkable. Heart/mediastinum: Cardiomediastinal silhouette is unremarkable. Musculoskeletal: No acute osseous pathology. IMPRESSION: No acute cardiopulmonary disease/process. [facility], , 01/22/2024 8:46 PM
--- NOTE | 2024-01-22 21:00 | ED ---
Chest Pain HPI - General Source: patient Mode of arrival: ambulatory Limitations: no limitations - History of Present Illness MD Complaint: chest pain Onset/Timin -: days(s) Onset: during rest Pain Location: right chest Pain Radiation: other Severity: moderate Quality: sharp, other ("Grinding") Consistency: intermittent Other Symptoms: other (Chest tightness, dizziness) Treatments Prior to Arrival: none <Moe Blankenship - Last Filed: 01/22/24 20:56> <Feliberto Owusu - Last Filed: 01/23/24 04:28> - General Chief Complaint: Chest Pain Stated Complaint: SOB, Chest Pain, High BP Time Seen by Provider: 01/22/24 20:09 - History of Present Illness Initial Comments: Quick note: This is a 43-year-old female presenting with right upper chest pain since early afternoon. Patient endorses a recurring grinding sensation of her right upper chest several times a day without provocation. Patient states pain radiates to her right neck. Also endorses sharp left axillary pain around 7 PM today. Endorses associated chest tightness and dizziness. Patient states she has pain seen by Dr. Avila November 2023 for "heart trouble" with had previously advised her to seek care at an ER if she began having heart issues. Patient states her blood pressures also been elevated (150/100). Patient denies [id number] medication use. Patient denies fever, chills, abdominal pain, N/V/D. (Moe Blankenship) 43-year-old female presenting with chief complaint of chest pain. Patient describes the pain is located on the upper right side of the chest. It has been intermittent throughout the day today. States that it feels like being punched. She does get some shortness of breath and lightheadedness with this. At 1 point she did have some pain beneath the left breast which has since dissipated. Patient currently follows with optometric technician Dr. Avila, she has had a stress test performed and a Holter monitor. Patient also states that her blood pressure was elevated at home. No pleuritic nature to the pain. No cough, congestion, sore throat, fever, chills, abdominal pain, nausea, vomiting, diarrhea, lower extremity swelling. (Feliberto Owusu) - Related Data Home Medications Medication Instructions Recorded Confirmed No Known Home Medications 12/07/23 12/07/23 Allergies Allergy/AdvReac Type Severity Reaction Status Date / Time aspirin Allergy Rash/Hives Verified 01/22/24 20:02 methyl salicylate Allergy Swelling Verified 01/22/24 20:02 [From Icy Hot] NSAIDS (Non-Steroidal Allergy Rash/Hives Verified 01/22/24 20:02 Anti-Inflamma venom-honey bee Allergy Anaphylaxis Verified 01/22/24 20:02 [bee venom (honey bee)] wheat Allergy Anaphylaxis Verified 01/22/24 20:02 Review of Systems ROS Other: All systems not noted in ROS Statement are negative. <Moe Blankenship - Last Filed: 01/22/24 20:56> ROS Other: All systems not noted in ROS Statement are negative. <Feliberto Owusu - Last Filed: 01/23/24 04:28> ROS Statement: Those systems with pertinent positive or pertinent negative responses have been documented in the HPI. 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 History of Any Multi-Drug Resistant Organisms: None Reported Past Surgical History: Adenoidectomy, Section, Orthopedic Surgery, Tonsillectomy Additional Past Surgical History / Comment(s): d&C, bone graft 10/2023 Past Anesthesia/Blood Transfusion Reactions: No Reported Reaction Past Psychological History: No Psychological Hx Reported Smoking Status: Former smoker Past Alcohol Use History: Occasional Past Drug Use History: None Reported - Past Family History Father Family Medical History: Coronary Artery Disease (CAD) <Moe Blankenship - Last Filed: 01/22/24 20:56> General Exam Limitations: no limitations <Moe Blankenship - Last Filed: 01/22/24 20:56> General appearance: alert, in no apparent distress Head exam: Present: atraumatic, normocephalic, normal inspection Eye exam: Present: normal appearance, EOMI Neck exam: Present: normal inspection. Absent: meningismus Respiratory exam: Present: normal lung sounds bilaterally. Absent: respiratory distress, wheezes, rales, rhonchi, stridor Cardiovascular Exam: Present: regular rate, normal rhythm, normal heart sounds. Absent: systolic murmur, diastolic murmur, rubs, gallop, clicks Extremities exam: Absent: pedal edema Neurological exam: Present: alert, oriented X3 Psychiatric exam: Present: normal affect, normal mood Skin exam: Present: warm, dry <Feliberto Owusu - Last Filed: 01/23/24 04:28> - General Exam Comments Initial Comments: Visual Physical Exam Vital signs reviewed General: Well-appearing, nontoxic, no acute distress. Head: Normocephalic, atraumatic Eyes: PERRLA, EOMI ENT: Airway patent Chest: Nonlabored breathing Skin: No visual rash, normal skin tone Neuro: Alert and oriented 3 Musculoskeletal: No gross abnormalities (Moe Blankenship) Course Vital Signs 01/22/24 01/22/24 01/23/24 20:00 23:10 00:59 Temperature 98.6 F 97.9 F Pulse Rate 87 82 67 Respiratory 18 17 16 Rate Blood Pressure 163/103 144/102 118/83 O2 Sat by Pulse 100 100 99 Oximetry Chest Pain MDM <Moe Blankenship - Last Filed: 01/22/24 20:56> <Feliberto Owusu - Last Filed: 01/23/24 04:28> - MDM I completed the quick note portion of this chart signed SHIRLENE Aguayo (Moe Blankenship) EKG shows sinus rhythm ventricular rate 79. FL interval 134. QRS 80. QT 338. QTc 372. No ST deviation. Was pt. sent in by a medical professional or institution ([facility], [facility], urgent care, hospital, or [place] health [place] facility...) When possible be specific @ -No Did you speak to anyone other than the patient for history (EMS, parent, family, police, friend...)? What history was obtained from this source @ -No Did you review nursing and triage notes (agree or disagree)? Why? @ -I reviewed and agree with nursing and triage notes Were old charts reviewed (outside hosp., previous admission, EMS record, old EKG, old radiological studies, urgent care reports/EKG's, [place] health [place] records)? Report findings @ -No old charts were reviewed Differential Diagnosis (chest pain, altered mental status, abdominal pain women, abdominal pain men, vaginal bleeding, weakness, fever, dyspnea, syncope, headache, dizziness, GI bleed, back pain, seizure, CVA, palpatations, mental health, musculoskeletal)? @ -[facility] Differential Chest Pain: Stable Angina, Unstable Angina, STEMI, NSTEMI Aortic Dissection, Pneumothorax, Musculoskeletal, Esophageal Spasm GERD, Cholecystitis, Pancreatitis, Zoster This is not meant to be an all-inclusive list. EKG interpreted by me (3pts min.). @ -As above X-rays interpreted by me (1pt min.). @ -Chest x-ray shows no acute process CT interpreted by me (1pt min.). @ -None done U/S interpreted by me (1pt. min.). @ -None done What testing was considered but not performed or refused? (CT, X-rays, U/S, labs)? Why? @ -None What meds were considered but not given or refused? Why? @ -None Did you discuss the management of the patient with other professionals (professionals i.e. , PA, [employer], lab, RT, psych nurse, certified social workers in health care, floorworker lasting, teacher, youth corrections officer, casework supervisor)? Give summary @ -No Was smoking cessation discussed for >3mins.? @ -No Was critical care preformed (if so, how long)? @ -No Were there social determinants of health that impacted care today? How? (Homelessness, low income, unemployed, alcoholism, drug addiction, transpor tation, low edu. Level, literacy, decrease access to med. care, senior care, rehab)? @ -No Was there de-escalation of care discussed even if they declined (Discuss DNR or withdrawal of care, Hospice)? DNR status @ -No What co-morbidities impacted this encounter? (DM, HTN, Smoking, COPD, CAD, Cancer, CVA, ARF, Chemo, Hep., AIDS, mental health diagnosis, sleep apnea, morbid obesity)? @ -None Was patient admitted / discharged? Hospital course, mention meds given and route, prescriptions, significant lab abnormalities, going to OR and other pertinent info. @ -43-year-old female presenting with chief complaint of chest pain. Workup was initiated by triage, patient is later brought back to a room and evaluated by myself. Lab work is grossly unremarkable. Patient has 2 negative troponins 3 hours apart as well as a negative D-dimer. She has had previous stress test performed as well and follows with Dr. Avila. Chest x-ray shows no acute process. Patient has a heart score of 1. Patient will be discharged and is instructed to follow-up with her optometric technician and PCP. She is educated on all of today's findings. Follow-up with PCP. Report back to ER with any new or worsening symptoms. Discussed return parameters and answered all questions. Patient conveyed verbal understanding and agreed to the plan. I discussed this case in detail with my attending Dr. Spencer Undiagnosed new problem with uncertain prognosis? @ -No Drug Therapy requiring intensive monitoring for toxicity (Heparin, Nitro, Insulin, Cardizem)? @ -No Were any procedures done? @ -No Diagnosis/symptom? @ -Atypical chest pain Acute, or Chronic, or Acute on Chronic? @ -Acute Uncomplicated (without systemic symptoms) or Complicated (systemic symptoms)? @ -Default Side effects of treatment? @ -No Exacerbation, Progression, or Severe Exacerbation? @ -No Poses a threat to life or bodily function? How? (Chest pain, [place], [place], pneumonia, PE, COPD, DKA, ARF, appy, cholecystitis, CVA, Diverticulitis, Homicidal, Suicidal, threat to staff... and all critical care pts) @ -Low likelihood (Feliberto Owusu) Disposition <Moe Blankenship - Last Filed: 01/22/24 20:56> Is patient prescribed a controlled substance at d/c from ED?: No Time of Disposition: 00:54 <Feliberto Owusu - Last Filed: 01/23/24 04:28> Clinical Impression: Atypical chest pain Disposition: HOME SELF-CARE Condition: Fair Instructions (If sedation given, give patient instructions): Chest Pain (ED) Additional Instructions: Follow-up with your PCP and optometric technician. Report back to ER with any new or worsening symptoms. Referrals: Lan Radford MD [STAFF PHYSICIAN] - 1-2 days Morris Vasques Jr, DO [Primary Care Provider] - 1-2 days
[2024-01-22] MEDS: ACETAMINOPHEN TAB 325 MG TAB PO STA (23:36)
[2024-01-22] MEDS: LORazepam 2 MG/ML INJ IV STA (23:38)
[2024-01-23 01:01] VITALS: BP 118/83; PULSE 67; RESP 16; TEMP 97.9
== END 2024-01-23 01:05 | disposition home or self-care (01) ==
LOC: EC 19:54
CPT/HCPCS: 36415; 71046; 80053; 82150; 83690; 83735; 84484; 85025; 85379; 85610; 85730; 93005; 96374; 99285

== ENCOUNTER → 2024-10-01 | Outpatient (CLI) | payer OTHER ==
[2024-10-01 10:21] LABS: Basophils # (A) 0.06 X 10*3/uL (0.00-0.10); Basophils % (A) 1.1 %; Eosinophils # (A) 0.44 X 10*3/uL (0.04-0.35); Eosinophils % (A) 7.9 %; HCT 38.9 % (37.2-46.3); HGB 12.5 g/dL (12.0-15.0); Lymphocytes # (A) 1.92 X 10*3/uL (0.90-5.00); Lymphocytes % (A) 34.6 %; MCH 28.9 pg (27.0-32.0); MCHC 32.1 g/dL (32.0-37.0); Mean Platelet Volume 11.3 FL (9.5-12.2); Monocytes # (A) 0.48 X 10*3/uL (0.20-1.00); Monocytes % (A) 8.6 %; NRBC Per 100 WBC 0 X 10*3/uL (0.00-0.01); Neutrophils # (A) 2.62 X 10*3/uL (1.80-7.70); Neutrophils % (A) 47.3 %; Platelet Count 257 X 10*3/uL (140-440); RBC 4.32 X 10*6/uL (4.10-5.20); RDW 13.4 % (11.5-14.5); WBC 5.55 X 10*3/uL (4.50-10.00)
[2024-10-01 10:49] LABS: ALT 15 U/L (8-44); AST 17 U/L (13-35); Albumin 4.1 g/dL (3.8-4.9); Albumin/Globulin Ratio 1.86 Ratio (1.60-3.17); Alkaline Phosphatase 52 U/L (41-126); BUN/Creat Ratio 11.33 Ratio (12.00-20.00); Blood Urea Nitrogen 10.2 mg/dL (9.0-27.0); Carbon Dioxide 25.5 mmol/L (21.6-31.8); Chloride 105 mmol/L (96-109); Chol/HDL Ratio 1.79 Ratio; Globulin 2.2 g/dL (1.6-3.3); Glucose 103 mg/dL (70-110); LDL Cholesterol,Calculated 49.8 mg/dL (0.0-131.0); Potassium 4.6 mmol/L (3.5-5.5); Sodium 139 mmol/L (135-145); T4, Free (Free Thyroxine) 1.14 ng/dL (0.80-1.80); Total Bilirubin 0.5 mg/dL (0.3-1.2); Total Protein 6.3 g/dL (6.2-8.2); VLDL Calculation 4.64 mg/dL (5.00-40.00)
[2024-10-01 11:20] LABS: C Reactive Protein <0.30 mg/dL (0.00-0.80)
[2024-10-01 11:36] LABS: Erythrocyte Sedimentation Rate 12 mm/Hr (0-20)
== END | disposition home or self-care (01) ==
LOC: LABWHC1 07:25
DX: Z00.00 Encounter for general adult medical examination without abnormal findings (principal); Z13.1 Encounter for screening for diabetes mellitus; Z13.220 Encounter for screening for lipoid disorders; Z13.29 Encounter for screening for other suspected endocrine disorder; M19.90 Unspecified osteoarthritis, unspecified site
CPT/HCPCS: 36415; 80053; 80061; 82306; 83036; 84439; 84443; 85025; 85652; 86140